=== PATIENT | male | born 1995 | race Caucasian/White ===

== ENCOUNTER 2019-02-20 09:46 | Emergency (ER) | payer OTHER ==
[~2019-02-20] VITALS: Ht 175.3 cm; Wt 100.9 kg
[2019-02-20 09:55] VITALS: BP 143/86; Ht 175.3 cm; Wt 100.9 kg
== END 2019-02-20 10:13 | disposition home or self-care (01) ==
LOC: ED 09:46
DX: J06.9 Acute upper respiratory infection, unspecified (principal)